=== PATIENT | female | born 1970 | race Caucasian/White ===

== ENCOUNTER → 2023-10-26 | Outpatient (CLI) | payer OTHER ==
[~2023-10-26] MED LIST: Ativan1 MG SL; HYDCHL12.5 PO; HYDCHL25 PO; IBUP800 PO; LISI20; LISI20 PO; PROM25 PO; SERT25 PO; SULTRIDS PO; TRAM50 PO
[2023-10-26 08:34] LABS: BASOPHILS ABSOLUTE AUTO 0.05 K/mm3 (0.00-0.23); BASOPHILS PERCENT AUTO 1 % (0-2); EOSINOPHILS ABSOLUTE AUTO 0.12 K/mm3 (0.00-0.68); EOSINOPHILS PERCENT AUTO 3 % (0-6); Hematocrit 44.6 % (33.0-51.0); Hemoglobin 16.1 g/dL (11.5-16.0); IMMATURE GRAN ABSOLUTE AUTO 0.01 K/mm3 (0.00-0.10); IMMATURE GRAN PERCENT AUTO 0 % (0-1); LYMPHOCYTES ABSOLUTE AUTO 0.93 K/mm3 (0.84-5.20); LYMPHOCYTES PERCENT AUTO 21 % (21-46); MONOCYTES ABSOLUTE AUTO 0.44 K/mm3 (0.16-1.47); MONOCYTES PERCENT AUTO 10 % (4-13); Mean Corpuscular HGB 35.9 pg (26.0-34.0); Mean Corpuscular HGB Conc 36.1 g/dL (31.5-36.5); Mean Corpuscular Volume 99 fL (80-100); Mean Platelet Volume 11.1 fL (9.1-12.4); NEUTROPHILS ABSOLUTE AUTO 2.92 K/mm3 (1.96-9.15); NEUTROPHILS PERCENT AUTO 65 % (41-73); Platelet Count 237 K/mm3 (150-400); RDW Coefficient Variation 13.6 % (11.7-14.2); RDW Standard Deviation 49.4 fL (35.1-46.3); Red Blood Cell Count 4.49 M/mm3 (3.80-5.20); White Blood Cell Count 4.47 K/mm3 (4.00-11.30)
[2023-10-26 08:43] LABS: Albumin, Blood 3.9 g/dL (3.4-5.0); Albumin/Globulin Ratio 1.1 (0.8-1.8); Bilirubin, Total 0.7 mg/dL (0.1-1.0); Calcium, Blood 9.4 mg/dL (8.5-10.1); Creatinine, Blood 0.58 mg/dL (0.40-1.00); Globulin, Blood 3.6 g/dL (2.2-4.0); Potassium, Blood 3.9 mmol/L (3.5-5.5); Total Protein, Blood 7.5 g/dL (6.4-8.2)
== END | disposition home or self-care (01) ==
LOC: LAB 07:40 → LAB SHORT 07:40
PROVIDERS: Nurse Practitioner Family
DX: R07.9 Chest pain, unspecified (principal)
CPT/HCPCS: 80053; 84484; 85025

== ENCOUNTER 2025-03-15 11:09 | Day surgery (SDC) | payer OTHER ==
[~2025-03-15] VITALS: Ht 172.7 cm; Wt 57.1 kg
[2025-03-15] MEDS ORDERED: CeFAZolin Sodium 2,000 MG VIAL ONE (12:01)
[2025-03-15] MEDS ORDERED: TRAM50 PO (12:14)
[2025-03-15] MEDS ORDERED: ONDA4ODT MM (12:15)
[2025-03-15] MEDS ORDERED: LOSA50 PO (12:15)
[2025-03-15] MEDS ORDERED: Dexmedetomidine HCL 200 MCG / 2 ML ONE (12:46)
[2025-03-15] MEDS ORDERED: FentaNYL Citrate 50 MCG/ML 2 ML Injection ONE ×2 (13:00→14:31)
[2025-03-15] MEDS ORDERED: Midazolam HCl 1MG / ML 2ML Vial ONE (13:00)
[2025-03-15] MEDS ORDERED: Bupivacaine 0.5% W/EPI 1:200000 SDV 30 ML Vial ONE (13:04)
--- NOTE | 2025-03-15 14:00 | NUR ---
03/15/25 1400 Irma Cabral TIME OUT PERFORMED AT BEDSIDE WITH DR. PATINO AT 1315. DR BECERRA PERFORMED NERVE BLOCK WITH DR PATINO IN ROOM. PT ON 3L O2 VIA N/C AND SPO2 AND HR MONITORED THROUGHOUT. PT TOLERATED PROCEDURE WELL. NERVE BLOCK STARTED AT 1323 AND ENDED AT 1331. DR BECERRA STARTED WITH [id number] STIMUPLEX NEEDLE AND SWITCHED TO [id number] STIMUPLEX NEEDLE.
[2025-03-15] MEDS ORDERED: Dexamethasone Sod Phos 10 MG/ML 1ML VIAL ONE (14:53)
[2025-03-15] MEDS ORDERED: Ondansetron HCl 2 MG / ML 2ML Vial ONE (14:53)
--- NOTE | 2025-03-15 15:00 | NUR ---
03/15/25 1500 Hilaria Holt REPORT RECEIVED FROM CRISTINA AND RN. PT ASLEEP UPON ARRIVAL. CURRENTLY AROUSABLE TO VERBAL STIMULI. DENIES PAIN AND NAUSEA. DR BECERRA AT BEDSIDE. ARM ELEVATED ON PILLOW. VSS.
--- NOTE | 2025-03-15 15:21 | NUR ---
03/15/25 1521 Hilaria Holt PT TRANSFERRED FROM [facility] TO [facility]. RIGHT ARM ELEVATED ON PILLOW, ICE PACK APPLIED. PT STEADY UPON TRANSFER. PT TOLERATING ORAL FLUIDS AND SNACKS WELL
[2025-03-15 15:22] VITALS: BP 141/116
== END 2025-03-15 15:49 | disposition home or self-care (01) ==
LOC: ORSCSDS 11:09
PROVIDERS: Orthopaedic Surgery
PROC: 0PSH04Z Reposition Right Radius with Internal Fixation Device, Open Approach (ICD-10-PCS; principal; 2025-03-15 13:15)
DX: S52.501A Unspecified fracture of the lower end of right radius, initial encounter for closed fracture (principal); I10 Essential (primary) hypertension; Z79.899 Other long term (current) drug therapy
CPT/HCPCS: C1713; J0690; J1100; J2250; J2405; J2704; J3010; J7120